=== PATIENT | male | born 1980 | race Two or more races ===

== ENCOUNTER 2021-01-16 07:07 | Inpatient (IN) | payer OTHER ==
[2021-01-16] MEDS ORDERED: NALOXONE 0.4 MG/ML 1 ML VIAL IVP STA ×2 (07:18→10:30)
[2021-01-16 07:45] LABS: Basophils # (A) 0.1 k/uL (0-0.2); Basophils % (A) 1 %; Eosinophils # (A) 0.1 k/uL (0-0.7); Eosinophils % (A) 0 %; HCT 47.4 % (39.0-53.0); HGB 15.9 gm/dL (13.0-17.5); Lymphocytes # (A) 1.2 k/uL (1.0-4.8); Lymphocytes % (A) 7 %; MCH 32.3 pg (25.0-35.0); MCHC 33.5 g/dL (31.0-37.0); MCV 96.3 fL (80.0-100.0); Mean Platelet Volume 7.8; Monocytes # (A) 0.9 k/uL (0-1.0); Monocytes % (A) 6 %; Neutrophils # (A) 14.4 k/uL (1.3-7.7); Neutrophils % (A) 86 %; Platelet Count 183 k/uL (150-450); RBC 4.93 m/uL (4.30-5.90); RDW 12.9 % (11.5-15.5); WBC 16.9 k/uL (3.8-10.6)
[2021-01-16 07:51] LABS: Albumin 3.8 g/dL (3.5-5.0); Calcium 8.4 mg/dL (8.4-10.2); Magnesium 1.9 mg/dL (1.6-2.3); Potassium 4.7 mmol/L (3.5-5.1); Total Bilirubin 0.6 mg/dL (0.2-1.3); Total Protein 6.6 g/dL (6.3-8.2)
--- NOTE | 2021-01-16 07:57 | XR ---
EXAMINATION TYPE: XR chest 2V DATE OF EXAM: 01/16/2021 COMPARISON: NONE HISTORY: Unresponsive, shortness of breath, possible drug overdose. TECHNIQUE: Frontal and lateral views of the chest are obtained. FINDINGS: The defibrillator pad overlies the right chest. Increased reticular opacities throughout t he left lung centrally. The cardiac silhouette size is upper limits of normal. Overlying EKG leads. No pleural effusion or pneumothorax seen bilaterally. The osseous structures are intact. IMPRESSION: Suspect diffuse left lung edema and/or less likely infiltrates. Progress study advised.
--- NOTE | 2021-01-16 08:07 | ED ---
General Adult HPI - General Chief complaint: Overdose Stated complaint: overdose Time Seen by Provider: 01/16/21 07:10 Source: patient, EMS, RN notes reviewed, old records reviewed Mode of arrival: EMS - History of Present Illness Initial comments: This is a 40-year-old male who presents emergency Department according to EMS he was found unresponsive by family and they gave him Narcan and the patient became awake and alert however he is again very drowsy and only responds to verbal or physical stimuli. Patient was given Narcan again he became awake and alert however patient denies any drug use. According to EMS his lungs sounded very wet and they were sure if he aspirated or was she having pulmonary edema. - Related Data Home Medications Medication Instructions Recorded Confirmed No Known Home Medications 01/16/21 01/16/21 Allergies Allergy/AdvReac Type Severity Reaction Status Date / Time No Known Allergies Allergy Verified 01/16/21 08:52 Review of Systems ROS Statement: Those systems with pertinent positive or pertinent negative responses have been documented in the HPI. ROS Other: All systems not noted in ROS Statement are negative. Past Medical History Past Medical History: Unable to Obtain History of Any Multi-Drug Resistant Organisms: Unobtainable Past Surgical History: Unable to Obtain Past Psychological History: Unable to Obtain Smoking Status: Unknown if ever smoked Past Alcohol Use History: Unable to Obtain Past Drug Use History: Unable to Obtain General Exam - General Exam Comments Initial Comments: GENERAL: Patient is well-developed and well-nourished. Patient is nontoxic and well- hydrated and is in mild distress. ENT: Neck is soft and supple. No significant lymphadenopathy is noted. Oropharynx is clear. Moist mucous membranes. Neck has full range of motion without eliciting any pain. There is no thyroid enlargement and no masses were felt. EYES: The sclera were anicteric and conjunctiva were pink and moist. Extraocular mo vements were intact and pupils were pinpoint. Eyelids were unremarkable. PULMONARY: Unlabored respirations. Good breath sounds bilaterally. No audible rales rhonchi or wheezing was noted. CARDIOVASCULAR: There is a regular rate and rhythm without any murmurs gallops or rubs. ABDOMEN: Soft and nontender with normal bowel sounds. SKIN: Skin is clear with no lesions or rashes and otherwise unremarkable. NEUROLOGIC: Patient is alert and oriented x3. Cranial nerves II through XII are grossly intact. Motor and sensory are also intact. Normal speech, volume and content. Symmetrical smile. MUSCULOSKELETAL: Normal extremities with adequate strength and full range of motion. LYMPHATICS: No significant lymphadenopathy is noted PSYCHIATRIC: Normal psychiatric evaluation. Course Vital Signs 01/16/21 01/16/21 01/16/21 07:11 07:20 07:30 Temperature 98.5 F Pulse Rate 118 H Respiratory 28 H 24 Rate Blood Pressure 120/90 O2 Sat by Pulse 98 Oximetry 01/16/21 07:49 Temperature Pulse Rate Respiratory 16 Rate Blood Pressure O2 Sat by Pulse Oximetry Medical Decision Making - Medical Decision Making EKG shows sinus tachycardia 113 bpm LA interval 130 QRS is under 100 QT interval is 318 QTC is 436. Patient's EKG shows no ST segment elevation or depression. Patient was given Narcan in the emergency department patient became alert and oriented. Patient again denies any drug use. X-ray shows left-sided pulmonary edema however I cannot be 100% sure there is no infiltrate or aspiration so started the patient on Rocephin and we'll continue antibiotics on the floor. I spoke with Dr. Nelson he came down and saw the patient and placed the patient on Narcan drip. Patient's head CT showed no acute abnormality. I wrote admitting orders. - Lab Data Result diagrams: 01/16/21 07:25 01/16/21 07:25 Lab Results 01/16/21 01/16/21 01/16/21 Range/Units 07:25 07:25 07:25 WBC 16.9 H (3.8-10.6) k/uL RBC 4.93 (4.30-5.90) m/uL Hgb 15.9 (13.0-17.5) gm/dL Hct 47.4 (39.0-53.0) % MCV 96.3 (80.0-100.0) fL MCH 32.3 (25.0-35.0) pg MCHC 33.5 (31.0-37.0) g/dL RDW 12.9 (11.5-15.5) % Plt Count 183 (150-450) k/uL MPV 7.8 Neutrophils % 86 % Lymphocytes % 7 % Monocytes % 6 % Eosinophils % 0 % Basophils % 1 % Neutrophils # 14.4 H (1.3-7.7) k/uL Lymphocytes # 1.2 (1.0-4.8) k/uL Monocytes # 0.9 (0-1.0) k/uL Eosinophils # 0.1 (0-0.7) k/uL Basophils # 0.1 (0-0.2) k/uL Sample Site ABG pH (7.35-7.45) ABG pCO2 (35-45) mmHg ABG pO2 (83-108) mmHg ABG HCO3 (21-25) mmol/L ABG Total CO2 (19-24) mmol/L ABG O2 Saturation (94-97) % ABG Base Excess mmol/L Eliseo Test FiO2 % Sodium 134 L (137-145) mmol/L Potassium 4.7 (3.5-5.1) mmol/L Chloride 104 (98-107) mmol/L Carbon Dioxide 22 (22-30) mmol/L Anion Gap 8 mmol/L BUN 23 H (9-20) mg/dL Creatinine 1.18 (0.66-1.25) mg/dL Est GFR (CKD-EPI)AfAm 88 (>60 ml/min/1.73 sqM) Est GFR (CKD-EPI)NonAf 76 (>60 ml/min/1.73 sqM) Glucose 161 H (74-99) mg/dL Calcium 8.4 (8.4-10.2) mg/dL Magnesium 1.9 (1.6-2.3) mg/dL Total Bilirubin 0.6 (0.2-1.3) mg/dL AST 146 H (17-59) U/L ALT 37 (4-49) U/L Alkaline Phosphatase 50 (38-126) U/L Troponin I 0.281 H* (0.000-0.034) ng/mL NT-Pro-B Natriuret Pep pg/mL Total Protein 6.6 (6.3-8.2) g/dL Albumin 3.8 (3.5-5.0) g/dL Urine Opiates Screen (NotDetected) Ur Oxycodone Screen (NotDetected) Urine Methadone Screen (NotDetected) Ur Propoxyphene Screen (NotDetected) Ur Barbiturates Screen (NotDetected) U Tricyclic Antidepress (NotDetected) Ur Phencyclidine Scrn (NotDetected) Ur Amphetamines Screen (NotDetected) U Methamphetamines Scrn (NotDetected) U Benzodiazepines Scrn (NotDetected) Urine Cocaine Screen (NotDetected) U Marijuana (THC) Screen (NotDetected) Coronavirus (PCR) (Not Detectd) 01/16/21 01/16/21 01/16/21 Range/Units 07:25 07:25 07:36 WBC (3.8-10.6) k/uL RBC (4.30-5.90) m/uL Hgb (13.0-17.5) gm/dL Hct (39.0-53.0) % MCV (80.0-100.0) fL MCH (25.0-35.0) pg MCHC (31.0-37.0) g/dL RDW (11.5-15.5) % Plt Count (150-450) k/uL MPV Neutrophils % % Lymphocytes % % Monocytes % % Eosinophils % % Basophils % % Neutrophils # (1.3-7.7) k/uL Lymphocytes # (1.0-4.8) k/uL Monocytes # (0-1.0) k/uL Eosinophils # (0-0.7) k/uL Basophils # (0-0.2) k/uL Sample Site ABG pH (7.35-7.45) ABG pCO2 (35-45) mmHg ABG pO2 (83-108) mmHg ABG HCO3 (21-25) mmol/L ABG Total CO2 (19-24) mmol/L ABG O2 Saturation (94-97) % ABG Base Excess mmol/L Eliseo Test FiO2 % Sodium (137-145) mmol/L Potassium (3.5-5.1) mmol/L Chloride (98-107) mmol/L Carbon Dioxide (22-30) mmol/L Anion Gap mmol/L BUN (9-20) mg/dL Creatinine (0.66-1.25) mg/dL Est GFR (CKD-EPI)AfAm (>60 ml/min/1.73 sqM) Est GFR (CKD-EPI)NonAf (>60 ml/min/1.73 sqM) Glucose (74-99) mg/dL Calcium (8.4-10.2) mg/dL Magnesium (1.6-2.3) mg/dL Total Bilirubin (0.2-1.3) mg/dL AST (17-59) U/L ALT (4-49) U/L Alkaline Phosphatase (38-126) U/L Troponin I (0.000-0.034) ng/mL NT-Pro-B Natriuret Pep 1250 pg/mL Total Protein (6.3-8.2) g/dL Albumin (3.5-5.0) g/dL Urine Opiates Screen Detected H (NotDetected) Ur Oxycodone Screen Not Detected (NotDetected) Urine Methadone Screen Not Detected (NotDetected) Ur Propoxyphene Screen Not Detected (NotDetected) Ur Barbiturates Screen Not Detected (NotDetected) U Tricyclic Antidepress Not Detected (NotDetected) Ur Phencyclidine Scrn Not Detected (NotDetected) Ur Amphetamines Screen Not Detected (NotDetected) U Methamphetamines Scrn Not Detected (NotDetected) U Benzodiazepines Scrn Not Detected (NotDetected) Urine Cocaine Screen Detected H (NotDetected) U Marijuana (THC) Screen Detected H (NotDetected) Coronavirus (PCR) Not Detected (Not Detectd) 01/16/21 Range/Units 09:25 WBC (3.8-10.6) k/uL RBC (4.30-5.90) m/uL Hgb (13.0-17.5) gm/dL Hct (39.0-53.0) % MCV (80.0-100.0) fL MCH (25.0-35.0) pg MCHC (31.0-37.0) g/dL RDW (11.5-15.5) % Plt Count (150-450) k/uL MPV Neutrophils % % Lymphocytes % % Monocytes % % Eosinophils % % Basophils % % Neutrophils # (1.3-7.7) k/uL Lymphocytes # (1.0-4.8) k/uL Monocytes # (0-1.0) k/uL Eosinophils # (0-0.7) k/uL Basophils # (0-0.2) k/uL Sample Site lbrac ABG pH 7.42 (7.35-7.45) ABG pCO2 40 (35-45) mmHg ABG pO2 41 L* (83-108) mmHg ABG HCO3 25 (21-25) mmol/L ABG Total CO2 27 H (19-24) mmol/L ABG O2 Saturation 80.7 L (94-97) % ABG Base Excess 0.9 mmol/L Eliseo Test Yes FiO2 21 % Sodium (137-145) mmol/L Potassium (3.5-5.1) mmol/L Chloride (98-107) mmol/L Carbon Dioxide (22-30) mmol/L Anion Gap mmol/L BUN (9-20) mg/dL Creatinine (0.66-1.25) mg/dL Est GFR (CKD-EPI)AfAm (>60 ml/min/1.73 sqM) Est GFR (CKD-EPI)NonAf (>60 ml/min/1.73 sqM) Glucose (74-99) mg/dL Calcium (8.4-10.2) mg/dL Magnesium (1.6-2.3) mg/dL Total Bilirubin (0.2-1.3) mg/dL AST (17-59) U/L ALT (4-49) U/L Alkaline Phosphatase (38-126) U/L Troponin I (0.000-0.034) ng/mL NT-Pro-B Natriuret Pep pg/mL Total Protein (6.3-8.2) g/dL Albumin (3.5-5.0) g/dL Urine Opiates Screen (NotDetected) Ur Oxycodone Screen (NotDetected) Urine Methadone Screen (NotDetected) Ur Propoxyphene Screen (NotDetected) Ur Barbiturates Screen (NotDetected) U Tricyclic Antidepress (NotDetected) Ur Phencyclidine Scrn (NotDetected) Ur Amphetamines Screen (NotDetected) U Methamphetamines Scrn (NotDetected) U Benzodiazepines Scrn (NotDetected) Urine Cocaine Screen (NotDetected) U Marijuana (THC) Screen (NotDetected) Coronavirus (PCR) (Not Detectd) Critical Care Time Critical Care Time: Yes Total Critical Care Time: 35 Disposition Clinical Impression: Heroin overdose, Cocaine abuse, Pulmonary edema, Elevated troponin Disposition: ADMITTED IP TO THIS [facility] Referrals: None,Stated [Primary Care Provider] - 1-2 days Time of Disposition: 10:18
[2021-01-16] MEDS ORDERED: cefTRIAXone IN SWFI 1,000 MG/10 ML SYRINGE IVP STA (08:19)
[2021-01-16 08:31] LABS: Amphetamine Screen,Urine Not Detected (NotDetected); Barbiturate Screen,Urine Not Detected (NotDetected); Benzodiazepines Screen,Urine Not Detected (NotDetected); Cocaine Screen,Urine Detected (NotDetected); Methadone Screen, Urine Not Detected (NotDetected); Opiate Screen,Urine Detected (NotDetected); Oxycodone Screen, Urine Not Detected (NotDetected); Phencyclidine Screen,Urine Not Detected (NotDetected); Tricyclic Antidepressant,Urine Not Detected (NotDetected); Urn Cannabinoid Scrn Detected (NotDetected)
[2021-01-16 09:29] LABS: ABG Base Excess 0.9 mmol/L; ABG HCO3 25 mmol/L (21-25); ABG Oxygen Saturation 80.7 % (94-97); ABG PCO2 40 mmHg (35-45); ABG PH 7.42 (7.35-7.45); ABG TCO2 27 mmol/L (19-24); Allen Test Performed? Yes
--- NOTE | 2021-01-16 09:30 | CT ---
EXAMINATION TYPE: CT brain wo con DATE OF EXAM: 01/16/2021 COMPARISON: None. HISTORY: altered mental status CT DLP: 1099.4 mGycm. Automated Exposure Control for Dose Reduction was Utilized. TECHNIQUE: CT scan of the head is performed without contrast. FINDINGS: There is no acute intracranial hemorrhage or midline shift identified. Mild bilateral fro ntal lobe atrophy. No hydrocephalus. Alexander-white matter differentiation maintained. Mild mucosal thick ening involving the visualized portion of the ethmoid sinuses. Visualized portion of the globes are u nremarkable. IMPRESSION: No acute intracranial hemorrhage or midline shift is seen.
[2021-01-16 09:39] LABS: ABG PO2 41 mmHg (83-108)
[2021-01-16] MEDS ORDERED: SODIUM CHLORIDE 0.9% 1,000 ML IV ONE ×2 (10:18→11:00)
[2021-01-16] MEDS ORDERED: SODIUM CHLORIDE 0.9% 2,000 ML IV ONE (10:41)
--- NOTE | 2021-01-16 11:09 | P.HPIM ---
History of Present Illness Patient [id number] male was brought into ER with unresponsive. Patient was given Narcan with the some response. Patient received the Marcaine 3 times with the significant response patient urine drug screen was positive for cocaine and opiates. Patient still has altered mental status CT of the head did not show any significant abnormality patient had a chest x-ray which showed some infiltrate in the left lungs because of which patient was started the on antibiotics for possible aspiration. Patient was unable to provide much history patient is arousable and patient does answer. Family came in later on when questioned patient was a with some friends today and the there don't know anything much more than that. REVIEW OF SYSTEMS: Unable to obtain PHYSICAL EXAMINATION: GENERAL: Retired arousable not in any acute distress. Well developed, well nourished. Observe for agitation and cramps. HEENT: Pupils are round and equally reacting to light. EOMI. No scleral icterus. No conjunctival pallor. Normocephalic, atraumatic. No pharyngeal erythema. No thyromegaly. CARDIOVASCULAR: S1 and S2 present. No murmurs, rubs, or gallops. PULMONARY: Chest is clear to auscultation, no wheezing or crackles. ABDOMEN: Soft, nontender, nondistended, normoactive bowel sounds. No palpable organomegaly. MUSCULOSKELETAL: No joint swelling or deformity. EXTREMITIES: No cyanosis, clubbing, or pedal edema. NEUROLOGICAL: Gross neurological examination did not reveal any focal deficits. SKIN: No rashes. Assessment and plan -Acute hypoxic respiratory failure patient's ABG showed a pCO2 of 41 patient is requiring more than 10 L of oxygen. This is secondary to opiate overdose. Patient received Narcan 3 times patient is bit more awake now probably to protect the airway now. Patient may end up needing intubation as of now we'll try and avoid intubation. If needed patient will be started on Narcan drip -Significant muscle cramps: Secondary to dehydration from cocaine use patient will be given IV normal saline boluses after which patient was started on normal saline at 1 25 mL per hour. -Acute renal failure secondary to intravascular depletion [place]-sinus tachycardia secondary to dehydration patient will be started on IV fluids as mentioned above -Multiple drug use urine drug screen is positive for opiates cocaine and marijuana. Mildly elevated troponin secondary to hypoxemia as well as probably cocaine use Will repeat troponin again recheck the EKG as well as -Possible aspiration for which patient is on antibiotics for which we'll continue DVT prophylaxis: Lovenox Past Medical History Past Medical History: Unable to Obtain History of Any Multi-Drug Resistant Organisms: Unobtainable Past Surgical History: Unable to Obtain Past Psychological History: Unable to Obtain Smoking Status: Unknown if ever smoked Past Alcohol Use History: Unable to Obtain Past Drug Use History: Unable to Obtain Medications and Allergies Home Medications Medication Instructions Recorded Confirmed Type No Known Home Medications 01/16/21 01/16/21 History Allergies Allergy/AdvReac Type Severity Reaction Status Date / Time No Known Allergies Allergy Verified 01/16/21 08:52 Physical Exam Vitals: Vital Signs Temp Pulse Resp BP Pulse Ox 01/16/21 10:39 112 H 26 H 117/67 85 L 01/16/21 07:49 16 01/16/21 07:30 98.5 F 01/16/21 07:20 24 01/16/21 07:11 118 H 28 H 120/90 98 Intake and Output 01/15/21 01/16/21 01/16/21 22:59 06:59 14:59 Other: Weight 77.519 kg Results CBC & Chem 7: 01/16/21 07:25 01/16/21 07:25 Labs: Abnormal Lab Results - Last 24 Hours (Table) 01/16/21 01/16/21 01/16/21 Range/Units 07:25 07:25 07:25 WBC 16.9 H (3.8-10.6) k/uL Neutrophils # 14.4 H (1.3-7.7) k/uL ABG pO2 (83-108) mmHg ABG Total CO2 (19-24) mmol/L ABG O2 Saturation (94-97) % Sodium 134 L (137-145) mmol/L BUN 23 H (9-20) mg/dL Glucose 161 H (74-99) mg/dL AST 146 H (17-59) U/L Troponin I 0.281 H* (0.000-0.034) ng/mL Urine Opiates Screen (NotDetected) Urine Cocaine Screen (NotDetected) U Marijuana (THC) Screen (NotDetected) 01/16/21 01/16/21 Range/Units 07:36 09:25 WBC (3.8-10.6) k/uL Neutrophils # (1.3-7.7) k/uL ABG pO2 41 L* (83-108) mmHg ABG Total CO2 27 H (19-24) mmol/L ABG O2 Saturation 80.7 L (94-97) % Sodium (137-145) mmol/L BUN (9-20) mg/dL Glucose (74-99) mg/dL AST (17-59) U/L Troponin I (0.000-0.034) ng/mL Urine Opiates Screen Detected H (NotDetected) Urine Cocaine Screen Detected H (NotDetected) U Marijuana (THC) Screen Detected H (NotDetected)
[2021-01-16] MEDS: NALOXONE (MDV) 2 MG in SODIUM CHLORIDE 0.9% 250 ML IV SCH ×3 (11:19→22:34)
--- NOTE | 2021-01-16 12:00 | XR ---
EXAMINATION TYPE: XR chest 1V DATE OF EXAM: 01/16/2021 COMPARISON: Chest x-ray 01/16/2021 and earlier time HISTORY: Shortness of breath TECHNIQUE: Single frontal view of the chest is obtained. FINDINGS: There is overlying defibrillator pads, artifacts. Airspace disease is again noted within th e left lung, question some patchy density in the right lower lung. Cardiac mediastinal silhouette delvin ws a similar appearance. No evident pneumothorax or pleural effusion. Bones are stable. IMPRESSION: Correlate for edema, pneumonia not excluded.
[2021-01-16] MEDS: PANTOPRAZOLE 40 MG/10 ML VIAL IVP SCH (13:00)
[2021-01-16 13:07] LABS: ABG Base Excess -1.7 mmol/L; ABG HCO3 23 mmol/L (21-25); ABG Oxygen Saturation 94.2 % (94-97); ABG PCO2 38 mmHg (35-45); ABG PH 7.39 (7.35-7.45); ABG PO2 66 mmHg (83-108); ABG TCO2 24 mmol/L (19-24); Allen Test Performed? Yes
--- NOTE | 2021-01-16 13:09 | P.CNPUL ---
History of Present Illness Consult date: 01/16/21 Requesting physician: Amarjit Nelson Reason for consult: hypoxemia, abnormal CXR/CT Chief complaint: Altered mental status History of present illness: This is a 40-year-old male patient was brought in by EMS earlier this morning after being found unresponsive by family members. There is concern regarding drug overdose including cocaine, heroin, marijuana. EMS did provide Narcan and the patient became more awake and alert briefly became more obtunded shortly thereafter. While awake the patient denied any drug use. CY scan of the brain revealed no acute intracranial process. He has very loose congested cough and possible aspiration. X-ray does reveal bilateral airspace disease worse on the left and some patchy density in the right lower lobe. No pneumothorax. White count 16.9. Hemoglobin 15.9. Sodium 134. Potassium 4.7. Creatinine 1.18. Glucose 161. Lactic acid 3.3. Troponin 0.28, 0.55. AST 146 ALT 37. Drug screen positive for opiates, cocaine, marijuana. Coronavirus by PCR not detected. Arterial blood gases on room air revealed a PaO2 of 41, pCO2 40, pH 7.42. He is seen in the emergency room. He is arousable. Pulling at his IVs and oxygen. He is currently on 10 L high flow nasal cannula to maintain O2 saturations in the 90s. He remains tachypneic. Tachycardic. Blood pressure stable. He's been given ceftriaxone. Currently on a Narcan drip at 0.6 mg per hour. 0.9 normal saline at 75 ML's per hour. Review of Systems ROS unobtainable: due to mental status Past Medical History Past Medical History: Unable to Obtain History of Any Multi-Drug Resistant Organisms: Unobtainable Past Surgical History: Unable to Obtain Past Psychological History: Unable to Obtain Smoking Status: Unknown if ever smoked Past Alcohol Use History: Unable to Obtain Past Drug Use History: Unable to Obtain Medications and Allergies Home Medications Medication Instructions Recorded Confirmed Type No Known Home Medications 01/16/21 01/16/21 History Allergies Allergy/AdvReac Type Severity Reaction Status Date / Time No Known Allergies Allergy Verified 01/16/21 08:52 Physical Exam Vitals: Vital Signs Temp Pulse Resp BP Pulse Ox 01/16/21 11:19 30 H 01/16/21 10:50 30 H 01/16/21 10:39 112 H 26 H 117/67 85 L 01/16/21 07:49 16 01/16/21 07:30 98.5 F 01/16/21 07:20 24 01/16/21 07:11 118 H 28 H 120/90 98 Intake and Output 01/15/21 01/16/21 01/16/21 22:59 06:59 14:59 Other: Weight 77.519 kg GENERAL EXAM: Arousable but drifts off, 40-year-old male patient, on 10 L high flow nasal cannula, restless, pulling IVs and oxygen. HEAD: Normocephalic. EYES: Sluggish reaction of pupils, equal size. NOSE: Clear with pink turbinates. THROAT: No erythema or exudates. NECK: No masses, no JVD. CHEST: No chest wall deformity. LUNGS: Equal air entry with bilateral scattered rhonchi CVS: S1 and S2 normal with no audible murmur, regular rhythm. ABDOMEN: No hepatosplenomegaly, normal bowel sounds, no guarding or rigidity. SPINE: No scoliosis or deformity SKIN: No rashes CENTRAL NERVOUS SYSTEM: Arousable but drifts off easily, brief but non focal deficits, tone is normal in all 4 extremities. EXTREMITIES: There is no peripheral edema. No clubbing, no cyanosis. Peripheral pulses are intact. Results - Laboratory Findings CBC and BMP: 01/16/21 07:25 01/16/21 07:25 ABG ABG pH 7.42 (7.35-7.45) 01/16/21 09:25 ABG pCO2 40 mmHg (35-45) 01/16/21 09:25 ABG pO2 41 mmHg (83-108) L* 01/16/21 09:25 ABG O2 Saturation 80.7 % (94-97) L 01/16/21 09:25 Abnormal lab findings: Abnormal Labs 01/16/21 01/16/21 01/16/21 07:25 07:25 07:25 WBC 16.9 H Neutrophils # 14.4 H ABG pO2 ABG Total CO2 ABG O2 Saturation Sodium 134 L BUN 23 H Glucose 161 H Plasma Lactic Acid Aris AST 146 H Troponin I 0.281 H* Urine Opiates Screen Urine Cocaine Screen U Marijuana (THC) Screen 11/16/21 11/16/21 11/16/21 07:36 09:25 10:50 WBC Neutrophils # ABG pO2 41 L* ABG Total CO2 27 H ABG O2 Saturation 80.7 L Sodium BUN Glucose Plasma Lactic Acid Aris 3.3 H* AST Troponin I Urine Opiates Screen Detected H Urine Cocaine Screen Detected H U Marijuana (THC) Screen Detected H 01/16/21 10:50 WBC Neutrophils # ABG pO2 ABG Total CO2 ABG O2 Saturation Sodium BUN Glucose Plasma Lactic Acid Aris AST Troponin I 0.559 H* Urine Opiates Screen Urine Cocaine Screen U Marijuana (THC) Screen - Diagnostic Findings Chest x-ray: image reviewed Assessment and Plan Assessment: 1 Altered mental status secondary to drug overdose including cocaine, marijuana and possible heroin 2 Acute hypoxic respiratory failure secondary to suspected aspiration versus fluid volume overload 3 Leukocytosis secondary to above 4 Troponin leak Plan: The patient was seen and evaluated by Dr. Fabian Chest x-ray and labs reviewed Follow-up ABGs Currently on 10 L high flow nasal cannula Continue to monitor closely to assure the patient able to protect his airway Discontinue ceftriaxone, add Zosyn Continue fluid resuscitation Lovenox for DVT prophylaxis Transfer to the ICU once a bed is available We will continue to follow and make further recommendations based on his clinical status I, the cosigning physician, performed a history & physical examination of the patient. Lungs sounds with crackles in the bilateral bases, few scattered rhonchi. Maintaining good O2 saturations in the 90s on 10 L high flow nasal cannula. I discussed the assessment and plan of care with my nurse practi Shanti martinez. I attest to the above consultation as dictated by her. Time with Patient: Greater than 30
[2021-01-16 13:29] LABS: Glucose,Whole Blood 116 mg/dL (75-99)
[2021-01-16] MEDS ORDERED: IPRATROPIUM-ALBUTEROL 3 ML NEB INHALATION PRN (15:13)
[2021-01-16] MEDS ORDERED: NALOXONE 0.4 MG/ML 1 ML VIAL IV PRN (18:21)
[2021-01-16] MEDS: PIPERACILLIN-TAZOBACTAM 3.375 GM in SODIUM CHLORIDE 0.9% 100 ML IVPB SCH ×2 (18:30→23:00)
[2021-01-16] MEDS: SODIUM CHLORIDE 0.9% 1,000 ML IV SCH (18:31)
[2021-01-16] MEDS: IPRATROPIUM-ALBUTEROL 3 ML NEB INHALATION SCH (20:16)
[2021-01-17] MEDS: NALOXONE (MDV) 2 MG in SODIUM CHLORIDE 0.9% 250 ML IV SCH ×3 (04:23→10:16)
[2021-01-17 05:15] LABS: HCT 43.3 % (39.0-53.0); HGB 14.7 gm/dL (13.0-17.5); MCH 32.3 pg (25.0-35.0); Mean Platelet Volume 7.4; Platelet Count 184 k/uL (150-450); RBC 4.56 m/uL (4.30-5.90); RDW 12.8 % (11.5-15.5); WBC 18.2 k/uL (3.8-10.6)
[2021-01-17 05:33] LABS: African American GFR (CKD) >90 (>60 ml/min/1.73 sqM); Anion Gap 4 mmol/L; Blood Urea Nitrogen 20 mg/dL (9-20); Calcium 8.4 mg/dL (8.4-10.2); Carbon Dioxide 25 mmol/L (22-30); Chloride 107 mmol/L (98-107); Glucose 117 mg/dL (74-99); Magnesium 1.8 mg/dL (1.6-2.3); Non-African American GFR(CKD) >90 (>60 ml/min/1.73 sqM); Sodium 136 mmol/L (137-145)
[2021-01-17 05:39] LABS: Band Neutrophils % 28 %; Lymphocytes # (M) 2.18 k/uL (1.0-4.8); Monocytes # (M) 1.27 k/uL (0-1.0); Neutrophils % (M) 53 %; Nucleated Red Blood Cells 0 /100 WBC (0-0); Total Cells Counted 200
[2021-01-17 05:40] LABS: Toxic Granulation Present; Toxic Vacuolation Present
[2021-01-17] MEDS ORDERED: Magnesium Replacement Protocol 1 EACH MISC MISCELLANE PRN (08:40)
[2021-01-17] MEDS: PANTOPRAZOLE 40 MG/10 ML VIAL IVP SCH (09:05)
[2021-01-17] MEDS: ENOXAPARIN 40 MG/0.4 ML SYRINGE SQ SCH (09:05)
[2021-01-17] MEDS: PIPERACILLIN-TAZOBACTAM 3.375 GM in SODIUM CHLORIDE 0.9% 100 ML IVPB SCH ×2 (09:06→21:49)
[2021-01-17] MEDS: IPRATROPIUM-ALBUTEROL 3 ML NEB INHALATION SCH ×3 (09:12→21:15)
--- NOTE | 2021-01-17 09:22 | XR ---
EXAMINATION TYPE: XR chest 1V portable DATE OF EXAM: 01/17/2021 Comparison: 01/16/2021 Clinical History: 40-year-old male sob Findings: Heart upper limits of normal in size. Patchy opacity throughout the left lung show slight improvement from prior. No pleural effusion. Impression: Patchy opacity throughout the left lung is improving compared to prior exam. Mild residual density re kennedy.
--- NOTE | 2021-01-17 09:31 | XR ---
Right hip HISTORY: Pain 2 views of the right hip Bone mineralization, joint spaces and alignment are maintained. Question of spinal curvature. IMPRESSION: Normal right hip. Consider dedicated lumbar spine exam as indicated.
[2021-01-17] MEDS: NICOTINE 14MG/24HR PATCH TRANSDERM SCH (09:59)
[2021-01-17] MEDS: PANTOPRAZOLE 40 MG TABLET PO SCH (09:59)
[2021-01-17] MEDS: MAGNESIUM SULFATE-D5W PMX 1 GM in DEXTROSE/WATER 1 100ML.BAG IVPB SCH ×2 (10:01→10:21)
[2021-01-17] MEDS: methylPREDNISolone 4 MG TAB TAPER PO SCH (10:40)
[2021-01-17] MEDS: AMOXIC-POT CLAV 875-125MG 1 EACH TAB PO SCH ×2 (10:40→21:04)
--- NOTE | 2021-01-17 13:31 | P.PN ---
Subjective Progress Note Date: 01/17/21 Principal diagnosis: Altered mental status secondary to drug overdose This is a 40-year-old male patient was brought in by EMS earlier this morning after being found unresponsive by family members. There is concern regarding drug overdose including cocaine, heroin, marijuana. EMS did provide Narcan and the patient became more awake and alert briefly became more obtunded shortly thereafter. While awake the patient denied any drug use. CY scan of the brain revealed no acute intracranial process. He has very loose congested cough and possible aspiration. X-ray does reveal bilateral airspace disease worse on the left and some patchy density in the right lower lobe. No pneumothorax. White count 16.9. Hemoglobin 15.9. Sodium 134. Potassium 4.7. Creatinine 1.18. Glucose 161. Lactic acid 3.3. Troponin 0.28, 0.55. AST 146 ALT 37. Drug screen positive for opiates, cocaine, marijuana. Coronavirus by PCR not detected. Arterial blood gases on room air revealed a PaO2 of 41, pCO2 40, pH 7.42. He is seen in the emergency room. He is arousable. Pulling at his IVs and oxygen. He is currently on 10 L high flow nasal cannula to maintain O2 saturations in the 90s. He remains tachypneic. Tachycardic. Blood pressure stable. He's been given ceftriaxone. Currently on a Narcan drip at 0.6 mg per hour. 0.9 normal saline at 75 ML's per hour. The patient is seen today 01/17/2021 in follow-up in the intensive care unit. He is much more awake and alert today. Oriented 3. Maintaining O2 saturation is in the 90s on 5 L high flow nasal cannula. His been afebrile. Hemodynamically stable. His x-ray shows improving patchy opacity within the left lung. Blood cultures revealed no growth. White count 18.2. Hemoglobin 14.7. Sodium 136. Potassium 4.0. Creatinine 0.87. Troponin 0.411. Echocardiogram is pending. X-ray of the right hip secondary to complaints of pain revealed no acute fractures. He is continued on DuoNeb inhalations, Zosyn. NicoDerm patch in place. Lovenox for DVT prophylaxis. Objective - Vital Signs Vital signs: Vital Signs Temp 98 F 01/17/21 09:00 Pulse 94 01/17/21 12:00 Resp 23 01/17/21 12:00 BP 112/74 01/17/21 12:00 Pulse Ox 93 L 01/17/21 12:00 Intake & Output 01/16/21 01/17/21 01/17/21 18:59 06:59 18:59 Intake Total 425 575 500 Output Total 0 1050 625 Balance 425 -475 -125 Weight 77.519 kg 77.1 kg Intake: IV 425 250 Sodium Chloride 0.9% 1, 425 000 ml @ 125 mls/hr IV . Q8H [facility] Rx#:[id number] Sodium Chloride 0.9% 1, 250 000 ml @ 50 mls/hr IV . Q20H [facility] Rx#:[id number] Intake, IV Titration 575 50 Amount Piperacillin-Tazobactam 3 100 .375 gm In Sodium Chloride 0.9% 100 ml @ 25 mls/hr IVPB Q8HR [facility] Rx# :[id number] Sodium Chloride 0.9% 1, 475 50 000 ml @ 50 mls/hr IV . Q20H [facility] Rx#:[id number] Oral 200 Output: Urine 0 1050 625 Other: Voiding Method Urinal Toilet # Voids 0 1 - Exam GENERAL EXAM: Alert, hard, oriented 3, 40-year-old gentleman, on 5 L high flow nasal cannula, comfortable in no apparent distress. HEAD: Normocephalic. EYES: Normal reaction of pupils, equal size. NOSE: Clear with pink turbinates. THROAT: No erythema or exudates. NECK: No masses, no JVD. CHEST: No chest wall deformity. LUNGS: Equal air entry with crackles in the left lung base. CVS: S1 and S2 normal with no audible murmur, regular rhythm. ABDOMEN: No hepatosplenomegaly, normal bowel sounds, no guarding or rigidity. SPINE: No scoliosis or deformity SKIN: No rashes CENTRAL NERVOUS SYSTEM: No focal deficits, tone is normal in all 4 extremities. EXTREMITIES: There is no peripheral edema. No clubbing, no cyanosis. Periphe ral pulses are intact. - Labs CBC & Chem 7: 01/17/21 04:49 01/17/21 04:49 Labs: Abnormal Lab Results - Last 24 Hours (Table) 01/16/21 01/16/21 01/17/21 Range/Units 13:28 14:12 04:49 WBC 18.2 H (3.8-10.6) k/uL Neutrophils # (Manual) 14.70 H (1.3-7.7) k/uL Monocytes # (Manual) 1.27 H (0-1.0) k/uL Sodium (137-145) mmol/L Glucose (74-99) mg/dL POC Glucose (mg/dL) 116 H (75-99) mg/dL Plasma Lactic Acid Aris 2.1 H* (0.7-2.0) mmol/L Troponin I (0.000-0.034) ng/mL 01/17/21 01/17/21 Range/Units 04:49 04:49 WBC (3.8-10.6) k/uL Neutrophils # (Manual) (1.3-7.7) k/uL Monocytes # (Manual) (0-1.0) k/uL Sodium 136 L (137-145) mmol/L Glucose 117 H (74-99) mg/dL POC Glucose (mg/dL) (75-99) mg/dL Plasma Lactic Acid Aris (0.7-2.0) mmol/L Troponin I 0.411 H* (0.000-0.034) ng/mL Microbiology - Last 24 Hours (Table) 01/16/21 10:50 Blood Culture - Preliminary Blood No Growth after 24 hours 01/16/21 10:50 Blood Culture - Preliminary Blood No Growth after 24 hours Assessment and Plan Assessment: 1 Altered mental status secondary to drug overdose including cocaine, marijuana and possible heroin, recovered 2 Acute hypoxic respiratory failure secondary to suspected aspiration versus fluid volume overload improved and down to 5 L high flow nasal cannula 3 Leukocytosis secondary to above 4 Troponin leak, echocardiogram pending Plan: The patient was seen and evaluated by Dr. Fabian Chest x-ray and labs reviewed Currently on 5 L high flow nasal cannula Titrate down the FiO2 as tolerated Discontinue Zosyn, add Augmentin Initiate Medrol Dosepak Lovenox for DVT prophylaxis NicoDerm patch added Transfer to the regular medical floor We will continue to follow I, the cosigning physician, performed a history & physical examination of the patient. Lungs sounds with crackles in the left lung base. Maintaining good O2 saturations in the 90s on 5 L high flow nasal cannula. I discussed the assessment and plan of care with my nurse practitioner, Shanti Brooks. I attest to the above note as dictated by her.
--- NOTE | 2021-01-17 14:10 | P.PN ---
Subjective Progress Note Date: 01/17/21 Patient [id number] male was brought into ER with unresponsive. Patient was given Narcan with the some response. Patient received the Marcaine 3 times with the significant response patient urine drug screen was positive for cocaine and opiates. Patient still has altered mental status CT of the head did not show any significant abnormality patient had a chest x-ray which showed some infiltrate in the left lungs because of which patient was started the on antibiotics for possible aspiration. Patient was unable to provide much history patient is arousable and patient does answer. Family came in later on when questioned patient was a with some friends today and the there don't know anything much more than that. 01/17/2021 Patient is evaluated today in intensive care unit, he has been off the Narcan drip for almost 24 hours. He is awake alert and oriented 3. Patient states that he feels very fatigued. He denies any headache, nausea, vomiting, diarrhea. Patient states that he is tolerating diet fine. Also has some complaints of a sore bottom, hip was x-rayed today with no acute fractures evident. He continues on 2 L nasal cannula, wean down from 5 L this morning. Patient is on a steroid taper and oral Augmentin. White blood cell count today is 18.2, sodium 136, magnesium 1.8, Troponin is 0.411. Echocardiogram is pending at this time, we will evaluate patient overnight and possible discharge tomorrow. Blood pressure stable 112/74. Patient can make transferred out of [facility] intensive care unit to the medical floor. He reports that he does drink frequently, however not daily. He reports smoking cigarettes and marijuana daily. Patient denies any significant past medical history. ROS Constitutional: Denied any fever, reports fatigue Cardio vascular: denied any chest pain, palpitations Gastrointestinal denied any nausea vomiting, denies abdominal pain Pulmonary: Denied any shortness of breath cough Neurologic denied any new focal deficits All inpatient medications were reviewed and appropriate changes in these medications as dictated in the interval history and assessment and plan. PHYSICAL EXAMINATION: GENERAL: Arousable not in any acute distress. AO x3 when awake. Well developed, well nourished. Observe for agitation and cramps. HEENT: Pupils are round and equally reacting to light. EOMI. No scleral icterus. No conjunctival pallor. Normocephalic, atraumatic. No pharyngeal erythema. No thyromegaly. CARDIOVASCULAR: S1 and S2 present. No murmurs, rubs, or gallops. PULMONARY: There is coarse rhonchi in all lung tatum, more predemoninant in the right. ABDOMEN: Soft, nontender, nondistended, normoactive bowel sounds. No palpable organomegaly. MUSCULOSKELETAL: No joint swelling or deformity. EXTREMITIES: No cyanosis, clubbing, or pedal edema. NEUROLOGICAL: Gross neurological examination did not reveal any focal deficits. SKIN: No rashes. Assessment and plan Assessment -Acute hypoxic respiratory failure secondary to opiate overdose with possible aspiration pneumonia. -Significant muscle cramps: Secondary to dehydration from cocaine use -Acute renal failure secondary to intravascular depletion, resolved -Sinus tachycardia secondary to dehydration, improving -Multiple drug use urine drug screen is positive for opiates cocaine and marijuana. -Mildly elevated troponin secondary to hypoxemia as well as probably cocaine use -Leukocytosis probably reactive and related to possible aspiration pneumonia DVT prophylaxis: Lovenox FULL CODE Plan Continue PO antibiotics and oral steroid taper Continue with IV fluids Continue to monitor neuro status Repeat labs in the morning Echocardiogram is pending, may need to consult cardiology depending on report Continue to wean oxygen as tolerated Objective - Vital Signs Vital signs: Vital Signs Temp 98.2 F 01/17/21 04:00 Pulse 89 01/17/21 08:00 Resp 23 01/17/21 08:00 BP 106/60 01/17/21 08:00 Pulse Ox 96 01/17/21 08:00 Intake & Output 01/16/21 01/17/21 01/17/21 18:59 06:59 18:59 Intake Total 425 575 50 Output Total 0 1050 0 Balance 425 -475 50 Weight 77.519 kg 77.1 kg Intake: IV 425 Sodium Chloride 0.9% 1, 425 000 ml @ 125 mls/hr IV . Q8H [facility] Rx#:[id number] Intake, IV Titration 575 50 Amount Piperacillin-Tazobactam 3 100 .375 gm In Sodium Chloride 0.9% 100 ml @ 25 mls/hr IVPB Q8HR [facility] Rx# :[id number] Sodium Chloride 0.9% 1, 475 50 000 ml @ 50 mls/hr IV . Q20H [facility] Rx#:[id number] Output: Urine 0 1050 0 Other: Voiding Method Urinal # Voids 0 - Labs CBC & Chem 7: 01/17/21 04:49 01/17/21 04:49 Labs: Abnormal Lab Results - Last 24 Hours (Table) 01/16/21 01/16/21 01/16/21 Range/Units 09:25 10:50 10:50 WBC (3.8-10.6) k/uL Neutrophils # (Manual) (1.3-7.7) k/uL Monocytes # (Manual) (0-1.0) k/uL ABG pO2 41 L* (83-108) mmHg ABG Total CO2 27 H (19-24) mmol/L ABG O2 Saturation 80.7 L (94-97) % Sodium (137-145) mmol/L Glucose (74-99) mg/dL POC Glucose (mg/dL) (75-99) mg/dL Plasma Lactic Acid Aris 3.3 H* (0.7-2.0) mmol/L Troponin I 0.559 H* (0.000-0.034) ng/mL 01/16/21 01/16/21 01/16/21 Range/Units 11:16 13:28 14:12 WBC (3.8-10.6) k/uL Neutrophils # (Manual) (1.3-7.7) k/uL Monocytes # (Manual) (0-1.0) k/uL ABG pO2 66 L (83-108) mmHg ABG Total CO2 (19-24) mmol/L ABG O2 Saturation (94-97) % Sodium (137-145) mmol/L Glucose (74-99) mg/dL POC Glucose (mg/dL) 116 H (75-99) mg/dL Plasma Lactic Acid Aris 2.1 H* (0.7-2.0) mmol/L Troponin I (0.000-0.034) ng/mL 01/17/21 01/17/21 Range/Units 04:49 04:49 WBC 18.2 H (3.8-10.6) k/uL Neutrophils # (Manual) 14.70 H (1.3-7.7) k/uL Monocytes # (Manual) 1.27 H (0-1.0) k/uL ABG pO2 (83-108) mmHg ABG Total CO2 (19-24) mmol/L ABG O2 Saturation (94-97) % Sodium 136 L (137-145) mmol/L Glucose 117 H (74-99) mg/dL POC Glucose (mg/dL) (75-99) mg/dL Plasma Lactic Acid Aris (0.7-2.0) mmol/L Troponin I (0.000-0.034) ng/mL Assessment and Plan Time with Patient: Greater than 30
--- NOTE | 2021-01-17 14:30 | ECHOF ---
Referral Reason:Lv function MEASUREMENTS -------- HEIGHT: 170.2 cm WEIGHT: 76.7 kg BP: 112/76 RVIDd: 3.2 cm (< 3.3) IVSd: 0.9 cm (0.6 - 1.1) LVIDd: 5.0 cm (3.9 - 5.3) LVPWd: 0.9 cm (0.6 - 1.1) IVSs: 1.3 cm LVIDs: 4.1 cm LVPWs: 1.5 cm LAESV Index (A-L): 26.29 ml/m Ao Diam: 3.9 cm (2.0 - 3.7) AV Cusp: 2.1 cm (1.5 - 2.6) MV EXCURSION: 18.450 mm (> 18.000) MV EF SLOPE: 72 mm/s (70 - 150) EPSS: 1.0 cm MV E Dwight: 0.45 m/s MV DecT: 254 ms MV A Dwight: 0.57 m/s MV E/A Ratio: 0.78 RAP: 5.00 mmHg RVSP: 30.53 mmHg FINDINGS -------- Sinus rhythm. This was a technically adequate study. The left ventricular size is normal. Left ventricular wall thickness is normal. There is moderate global hypokinesis of LV . Overall left ventricular systolic function is moderately impaired with, an EF between 35 - 40 %. The right ventricle is normal in size. Normal LA size by volume 22+/-6 ml/m2. The right atrial size is normal. Interatrial and interventricular septum intact. The aortic valve is trileaflet and appears structurally normal. There is no evidence of aortic regu rgitation. There is no evidence of aortic stenosis. [id number] mitral regurgitation is present. Mild tricuspid regurgitation present. There is no evidence of pulmonary hypertension. The right v entricular systolic pressure, as measured by Doppler, is 30.53mmHg. There is no pulmonic regurgitation present. The aortic root size is normal. IVC Not well visulized. There is no pericardial effusion. CONCLUSIONS -------- 1. The left ventricular size is normal. 2. Left ventricular wall thickness is normal. 3. There is moderate global hypokinesis of LV . 4. Overall left ventricular systolic function is moderately impaired with, an EF between 35 - 40 %. 5. [id number] mitral regurgitation is present. 6. Mild tricuspid regurgitation present. LAW TUTOR: Liset Olivier RDCS
--- NOTE | 2021-01-17 15:31 | CONS ---
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 Subsequently, he is more alert, oriented. He has not had any drowsiness issues. On questioning, he snorted cocaine at about 9:00 pm the night before he arrived. However, he was also hypoxic for a while and his troponins have gone up. He is resting comfortably at the time of my evaluation, has no chest pain, shortness of breath, or palpitations. PAST MEDICAL HISTORY: Unremarkable for any hypertension, diabetes, myocardial infarction or CVA. Patient has used drugs before, but indicates to me that it is very infrequent and the one he used yesterday was 9:00 pm before his arrival to the hospital and he was snorting cocaine. The drug screen suggests that these drugs were in his system. There is no evidence of any documented chronic illnesses and he does not take any prescription medications. PHYSICAL EXAMINATION: On examination, blood pressure is 118/70, pulse rate is 80 per minute. HEENT unremarkable. Fundus was not examined by me. NECK is supple. There is no JVD. I do not hear a carotid bruit. HEART exam reveals S1, S2 without significant murmur. LUNGS: Fine rales on both bases. ABDOMEN is soft, nontender. Lower EXTREMITIES reveal diminished pulses. CENTRAL NERVOUS SYSTEM is grossly within normal limits without any focal motor deficits. LABORATORY DATA: Suggests that his white count is elevated. Renal function is normal. Troponin is elevated was 0.5 at 10:50 am yesterday. Chest x-ray suggests some edema of the left lung and possible pneumonia also in the right lower lung tatum. IMPRESSION: 1. Troponin elevation suggests myocardial injury, probably secondary to hypoxia. 2. Acute cocaine overdose with obtundation requiring Narcan. 3. Rule out any aspiration pneumonia. RECOMMENDATIONS: No specific intervention from a cardiac standpoint. I am recommending that we obtain an additional lab work to check another troponin level and echocardiogram to assess LV function. The patient was counseled to quit cocaine use since it is injurious both to the heart and lung. No specific intervention. We will do echocardiogram, check additional troponin and other care as per paint striping machine operator, Dr. Fabian. MMODL / IJN: [id number] /
[2021-01-17] MEDS: SODIUM CHLORIDE 0.9% 1,000 ML IV SCH (18:00)
[2021-01-17] MEDS ORDERED: ACETAMINOPHEN TAB 325 MG TAB PO PRN (18:15)
[2021-01-18 06:53] LABS: Basophils % (A) 0 %; Eosinophils % (A) 0 %; HCT 45.7 % (39.0-53.0); HGB 15.3 gm/dL (13.0-17.5); Lymphocytes # (A) 1.6 k/uL (1.0-4.8); Lymphocytes % (A) 9 %; MCH 31.8 pg (25.0-35.0); MCHC 33.5 g/dL (31.0-37.0); MCV 94.9 fL (80.0-100.0); Mean Platelet Volume 7.5; Monocytes # (A) 0.7 k/uL (0-1.0); Monocytes % (A) 4 %; Neutrophils # (A) 14.7 k/uL (1.3-7.7); Neutrophils % (A) 85 %; Platelet Count 202 k/uL (150-450); RBC 4.82 m/uL (4.30-5.90); RDW 12.7 % (11.5-15.5); WBC 17.3 k/uL (3.8-10.6)
[2021-01-18 07:05] LABS: African American GFR (CKD) >90 (>60 ml/min/1.73 sqM); Anion Gap 6 mmol/L; Blood Urea Nitrogen 18 mg/dL (9-20); Calcium 9.2 mg/dL (8.4-10.2); Carbon Dioxide 28 mmol/L (22-30); Chloride 105 mmol/L (98-107); Glucose 100 mg/dL (74-99); Magnesium 2.3 mg/dL (1.6-2.3); Non-African American GFR(CKD) >90 (>60 ml/min/1.73 sqM); Potassium 4.3 mmol/L (3.5-5.1); Sodium 139 mmol/L (137-145)
[2021-01-18] MEDS: IPRATROPIUM-ALBUTEROL 3 ML NEB INHALATION SCH (08:24)
[2021-01-18] MEDS: NICOTINE 14MG/24HR PATCH TRANSDERM SCH (08:53)
[2021-01-18] MEDS: PANTOPRAZOLE 40 MG TABLET PO SCH (08:54)
[2021-01-18] MEDS: ENOXAPARIN 40 MG/0.4 ML SYRINGE SQ SCH (08:54)
[2021-01-18] MEDS ORDERED: METOPROLOL TARTRATE 12.5 MG TAB PO SCH (09:00)
[2021-01-18 09:03] VITALS: RESP 16
[2021-01-18] MEDS: AMOXIC-POT CLAV 875-125MG 1 EACH TAB PO SCH (10:04)
[2021-01-18] MEDS: methylPREDNISolone 4 MG TAB TAPER PO SCH (10:07)
--- NOTE | 2021-01-18 10:24 | P.PN ---
Subjective Progress Note Date: 01/18/21 HISTORY OF PRESENT ILLNESS: This is a 40 year old male who is admitted to the hospital after being found unresponsive by his family. He received Narcan x 2. Patient examined this mor cristal at the bedside. He denies chest pain or pressure. Denies shortness of breath. States he has been up and going to the bathroom without any issues. Echocardiogram completed revealing ejection fraction 35-40%, moderate global hypokinesis of LV, mild to moderate mitral regurgitation, and mild tricuspid regurgitation. PHYSICAL EXAM: VITAL SIGNS: Reviewed. GENERAL: Well-developed in no acute distress. NECK: Supple. No JVD or thyromegaly LUNGS: Respirations even and unlabored. Lungs diminished to auscultation bilaterally. HEART: Regular rate and rhythm. S1 and S2 heard. EXTREMITIES: Normal range of motion. No clubbing or cyanosis. Peripheral pulses intact. No lower extremity edema ASSESSMENT: Unresponsiveness due to drug overdose, s/p Narcan x 2 New cardiomyopathy with abnormal troponins Cocaine use Marijuana use Acute hypoxic respiratory failure Possible aspiration pneumonia Acute renal failure, resolved PLAN: Patient with new cardiomyopathy with EF 35-40%. Suspect this is related to drug use. However, can not rule out underlying CAD. Patient has no angina at this time. He also has no signs or symptoms of heart failure. We will begin aspirin and lisinopril. No beta oni secondary to cocaine use. He may follow up outpatient with Dr. Ramachandran for further ischemic workup including possible stress test/cardiac cath. Nurse practitioner note has been reviewed by physician. Signing provider agrees with the documented findings, assessment, and plan of care. Objective - Vital Signs Vital signs: Vital Signs Temp 98.1 F 01/18/21 08:00 Pulse 84 01/18/21 08:40 Resp 16 01/18/21 08:00 BP 131/83 01/18/21 08:00 Pulse Ox 94 L 01/18/21 08:00 Intake & Output 01/17/21 01/18/21 01/18/21 18:59 06:59 18:59 Intake Total 600 236 Output Total 1400 Balance -800 236 Intake: IV 350 Sodium Chloride 0.9% 1, 350 000 ml @ 50 mls/hr IV . Q20H [facility] Rx#:[id number] Intake, IV Titration 50 Amount Sodium Chloride 0.9% 1, 50 000 ml @ 50 mls/hr IV . Q20H [facility] Rx#:[id number] Oral 200 236 Output: Urine 1400 Other: Voiding Method Toilet Toilet Urinal Urinal # Voids 1 1 # Bowel Movements 0 - Labs CBC & Chem 7: 01/18/21 06:04 01/18/21 06:04 Labs: Abnormal Lab Results - Last 24 Hours (Table) 01/18/21 01/18/21 Range/Units 06:04 06:04 WBC 17.3 H (3.8-10.6) k/uL Neutrophils # 14.7 H (1.3-7.7) k/uL Glucose 100 H (74-99) mg/dL Microbiology - Last 24 Hours (Table) 01/16/21 10:50 Blood Culture - Preliminary Blood No Growth after 24 hours 01/16/21 10:50 Blood Culture - Preliminary Blood No Growth after 24 hours
[2021-01-18] MEDS ORDERED: ASPIRIN 81 MG PO SCH (10:30)
--- NOTE | 2021-01-18 12:43 | P.DS ---
Providers Date of admission: 01/16/21 10:18 Attending physician: Amarjit Nelson Consults: 01/16/21 11:44 Consult Physician Routine Consulting Provider: Mehreen Ramachandran Consult Reason/Comments: Troponin elevation Do you want consulting provider notified?: Yes 01/16/21 11:46 Consult Physician Routine Consulting Provider: Brian Iyer Consult Reason/Comments: Drug overdose Do you want consulting provider notified?: Yes Primary care physician: Stated None Hospital Course: Final Diagnosis -Acute hypoxic respiratory failure secondary to opiate overdose with possible aspiration pneumonia. -New cardiomyopathy, ejection fraction 35-40% with moderate global hypokinesis of the LV -Significant muscle cramps: Secondary to dehydration from cocaine use -Acute renal failure secondary to intravascular depletion -Sinus tachycardia secondary to dehydration -Multiple drug use urine drug screen is positive for opiates cocaine and marijuana. -Mildly elevated troponin secondary to hypoxemia as well as probably cocaine use -Leukocytosis probably reactive and related to possible aspiration pneumonia Discharge disposition Patient is discharged home to follow-up with cardiology next week and will most likely need a stress test and cardiac Outpatient. Patient is discharged on aspirin and lisinopril. Patient educated extensively on cessation of drug use, smoking cessation. Repeat CBC in 2-3 days. Follow-up with the [facility]. Hospital course This is a 40-year-old male presented to the after being found unresponsive by his family. Family had given him 2 doses of Narcan and called EMS who brought patient to the . Patient was initially started on a Narcan drip and transferred to the medical ICU. Patient was obtunded however yesterday 01/17 he was alert oriented 3. He did admit to meeting up with some friends and using cocaine and also has a previous history of cocaine use. Drug toxicology was positive for opiates, cocaine and marijuana. Patient does admit to smoking daily as well as daily marijuana use and he socially drinks. There is no past medical history noted patient is not taking any medications at home. There was concern for aspiration pneumonia as patient was initially requiring oxygen support at 10L HF NC, he was able to be weaned onto room air with a saturation 97%. Chest x-ray on admission, suspect diffuse left lung edema and are less likely infiltrates. Chest x-ray follow-up showed patchy opacities of left lung field is improved compared to prior exam. Patient was evaluated by pulmonary services who recommended discharge on a steroid taper and oral Augmentin. White blood cell on admission was 18.2, improving to 17.3. We will repeat this in 2-3 days outpatient. Lactic acid on admission 3.3, improved to 1.9. Troponin level on admission of 0.280, 0.559 and a follow-up at 0.411. Cardiology consultation was placed. Echocardiogram showed an ejection fraction 35-40% with moderate global hypokinesis of the LV with mild tricuspid regurgitation and mild to moderate mitral regurgitation. Patient will not be discharged on a beta oni due to cocaine abuse. Patient was recommended to be discharged on lisinopril and aspirin 81 mg po daily and to follow up with cardiology in the office. Cardiology is recommending an outpatient stress test, cardiac catheterization. On 01/18/2021 Patient is cleared medically for discharge from a cardiology perspective and to follow-up in the office. Patient was counseled extensively on the importance of cessation of nicotine as well as cocaine and other drugs. He will need to follow-up closely with a primary care provider as well as cardiology. Patient denies any chest pain, chest pressure, palpitations. He denies any cough or shortness of breath. Lungs sounds show some coarse rhonchi in the lower bases however this is improving. He is now on room air with oxygen saturation of 94%, blood pressure is 131/83, temperature 98.1 and he is sinus rhythm with a heart rate of 84. Focal neurological exam is negative. Patient denies any headache, dizziness or lightheadedness. He is able to tolerate a diet and ambulating without difficulty. Patient is understanding of the plan of care for discharge and understands that he needs a lifestyle change. Please see medication reconciliation for list of current medications. Thank you for allowing us to participate in the care of this patient. Plan - Discharge Summary New Discharge Prescriptions: New Aspirin 81 mg PO DAILY #30 tab Amoxic-Pot Clav 875-125Mg [Augmentin 875-125] 1 each PO Q12HR 14 Days #28 tab methylPREDNISolone Dose Pack [Medrol Dose Pack] See Taper PO DAILY #10 tab Pantoprazole [Protonix] 40 mg PO AC-BRKFST #30 tab Nicotine 14Mg/24Hr Patch [Habitrol] 1 patch TRANSDERM DAILY patch Acetaminophen Tab [Tylenol] 650 mg PO Q4HR PRN tab PRN Reason: Fever And/ Or Pain lisinopriL [Zestril] 2.5 mg PO DAILY 1 Days #30 tab Discharge Medication List Acetaminophen Tab [Tylenol] 650 mg PO Q4HR PRN tab 01/18/21 [Rx] Amoxic-Pot Clav 875-125Mg [Augmentin 875-125] 1 each PO Q12HR 14 Days #28 tab 01/18/21 [Rx] Aspirin 81 mg PO DAILY #30 tab 01/18/21 [Rx] Nicotine 14Mg/24Hr Patch [Habitrol] 1 patch TRANSDERM DAILY patch 01/18/21 [Rx] Pantoprazole [Protonix] 40 mg PO AC-BRKFST #30 tab 01/18/21 [Rx] lisinopriL [Zestril] 2.5 mg PO DAILY 1 Days #30 tab 01/18/21 [Rx] methylPREDNISolone Dose Pack [Medrol Dose Pack] See Taper PO DAILY #10 tab 01/18/21 [Rx] Follow up Appointment(s)/Referral(s): Mehreen Ramachandran MD [STAFF PHYSICIAN] - 01/30/21 (office will call to with appointment time) None,Stated [Primary Care Provider] - 1-2 days [facility] [NON-STAFF] - 1 Week Ambulatory/Diagnostic Orders: Complete Blood Count w/diff [LAB.AMB] Time Frame: 2 Days, Location: None Selected Discharge Disposition: HOME SELF-CARE
--- NOTE | 2021-01-18 12:45 | P.PN ---
Subjective Progress Note Date: 01/18/21 Principal diagnosis: Altered mental status secondary to drug overdose This is a 40-year-old male patient was brought in by EMS earlier this morning after being found unresponsive by family members. There is concern regarding drug overdose including cocaine, heroin, marijuana. EMS did provide Narcan and the patient became more awake and alert briefly became more obtunded shortly thereafter. While awake the patient denied any drug use. CY scan of the brain revealed no acute intracranial process. He has very loose congested cough and possible aspiration. X-ray does reveal bilateral airspace disease worse on the left and some patchy density in the right lower lobe. No pneumothorax. White count 16.9. Hemoglobin 15.9. Sodium 134. Potassium 4.7. Creatinine 1.18. Glucose 161. Lactic acid 3.3. Troponin 0.28, 0.55. AST 146 ALT 37. Drug screen positive for opiates, cocaine, marijuana. Coronavirus by PCR not detected. Arterial blood gases on room air revealed a PaO2 of 41, pCO2 40, pH 7.42. He is seen in the emergency room. He is arousable. Pulling at his IVs and oxygen. He is currently on 10 L high flow nasal cannula to maintain O2 saturations in the 90s. He remains tachypneic. Tachycardic. Blood pressure stable. He's been given ceftriaxone. Currently on a Narcan drip at 0.6 mg per hour. 0.9 normal saline at 75 ML's per hour. The patient is seen today 01/17/2021 in follow-up in the intensive care unit. He is much more awake and alert today. Oriented 3. Maintaining O2 saturation is in the 90s on 5 L high flow nasal cannula. His been afebrile. Hemodynamically stable. His x-ray shows improving patchy opacity within the left lung. Blood cultures revealed no growth. White count 18.2. Hemoglobin 14.7. Sodium 136. Potassium 4.0. Creatinine 0.87. Troponin 0.411. Echocardiogram is pending. X-ray of the right hip secondary to complaints of pain revealed no acute fractures. He is continued on DuoNeb inhalations, Zosyn. NicoDerm patch in place. Lovenox for DVT prophylaxis. On 01/18/2021 patient seen in follow-up in medical surgical floor, he is calm and comfortable, he sitting up in bed, awake and alert, oriented 3, breathing comfortably, lung sounds reveal a few bibasilar crackles, patient has an occasional cough, at times she is bringing up some phlegm, he states is slightly pink tinged, but no hemoptysis, no complaints of chest pain, he remains on Augmentin for antibiotic coverage, remains on nebulized bronchodilators, he is on nicotine patch. He is on GI and DVT prophylaxis. Today's labs have been re viewed, his blood blood cell count is 17.3, slightly improved from yesterday, hemoglobin is 15.3, electrolytes and renal profile are within normal limits, has had no acute events overnight. Echocardiogram has been reviewed going globin hypokinesis of left ventricle and EF of 35-40%, mild to moderate mitral regurgitation, no evidence of pulmonary hypertension, there is mild tricuspid regurgitation, right-sided pressures 30.5 mmHg. Objective - Vital Signs Vital signs: Vital Signs Temp 98.1 F 01/18/21 08:00 Pulse 84 01/18/21 08:40 Resp 16 01/18/21 08:00 BP 131/83 01/18/21 08:00 Pulse Ox 94 L 01/18/21 08:00 Intake & Output 01/17/21 01/18/21 01/18/21 18:59 06:59 18:59 Intake Total 600 236 Output Total 1400 Balance -800 236 Intake: IV 350 Sodium Chloride 0.9% 1, 350 000 ml @ 50 mls/hr IV . Q20H JERRY Rx#:[id number] Intake, IV Titration 50 Amount Sodium Chloride 0.9% 1, 50 000 ml @ 50 mls/hr IV . Q20H JERRY Rx#:[id number] Oral 200 236 Output: Urine 1400 Other: Voiding Method Toilet Toilet Toilet Urinal Urinal Urinal # Voids 1 1 1 # Bowel Movements 0 0 - Exam GENERAL EXAM: Alert, very pleasant, 40-year-old white male, up in bed, breathing comfortably, on room air pulse ox of 94% comfortable in no apparent distress. HEAD: Normocephalic/atraumatic. EYES: Normal reaction of pupils, equal size. Conjunctiva pink, sclera white. NOSE: Clear with pink turbinates. THROAT: No erythema or exudates. NECK: No masses, no JVD, no thyroid enlargement, no adenopathy. CHEST: No chest wall deformity. Symmetrical expansion. LUNGS: Equal air entry with mild bibasilar rales, no wheezes, no rhonchi CVS: Regular rate and rhythm, normal S1 and S2, no gallops, no murmurs, no rubs ABDOMEN: Soft, nontender. No hepatosplenomegaly, normal bowel sounds, no g uarding or rigidity. EXTREMITIES: No clubbing, no edema, no cyanosis, 2+ pulses and upper and lower extremities. MUSCULOSKELETAL: Muscle strength and tone normal. SPINE: No scoliosis or deformity SKIN: No rashes CENTRAL NERVOUS SYSTEM: Alert and oriented -3. No focal deficits, tone is normal in all 4 extremities. PSYCHIATRIC: Alert and oriented -3. Appropriate affect. Intact judgment and insight. - Labs CBC & Chem 7: 01/18/21 06:04 01/18/21 06:04 Labs: Abnormal Lab Results - Last 24 Hours (Table) 01/18/21 01/18/21 Range/Units 06:04 06:04 WBC 17.3 H (3.8-10.6) k/uL Neutrophils # 14.7 H (1.3-7.7) k/uL Glucose 100 H (74-99) mg/dL Microbiology - Last 24 Hours (Table) 01/16/21 10:50 Blood Culture - Preliminary Blood No Growth after 24 hours 01/16/21 10:50 Blood Culture - Preliminary Blood No Growth after 24 hours Assessment and Plan Plan: Assessment: #1. Altered mental status related to drug overdose and the drug screen was positive for cocaine, marijuana and possible heroin, recovered. Patient received Narcan 2 with improvement of his level of consciousness #2. Acute hypoxic respiratory failure secondary to suspected aspiration and mild fluid volume overload, improved. Patient is currently on room air #3. Leukocytosis possibly related to aspiration, improving, patient is covered with Augmentin #4. Positive troponins, please refer to the cardiology consultation #5. New cardiomyopathy, with EF of 35-40%, being followed by cardiology #6. Acute kidney injury, improving #7. Nicotine dependence Plan: Continue oral antibiotics Continue bronchodilators Echocardiogram has been noted, patient is being followed by cardiology Vital signs are stable, no cognitive chest pain, patient is off the oxygen No altered mentation, Increase activity as tolerated Possible discharge home if patient has been cleared from cardiology standpoint and medicine May finish outpatient course of antibiotics We will need to follow up with Dr. Blackman in the office in 7-10 days I performed a history & physical examination of the patient and discussed their management with my nurse practitioner, Milvia Lee. I reviewed the nurse practitioner's note and agree with the documented findings and plan of care. Lung sounds are positive for mild crackles throughout the lung tautm. The find ings and the impression was discussed with the patient. I attest to the documentation by the nurse practitioner. Time with Patient: Less than 30
[2021-01-18 14:59] VITALS: BP 136/58; PULSE 94; TEMP 97.9
== END 2021-01-18 15:06 | disposition home or self-care (01) | DRG 917 ==
LOC: EC 07:07 → 1SOBS 10:18 → 3SCARD 11:06 → 2SICU 12:31 → 4SSUR 01-17 22:16
PROVIDERS: ADMIT Internal Medicine; ATTEND Internal Medicine
PROC: 5A0935A Assistance with Respiratory Ventilation, Less than 24 Consecutive Hours, High Flow/Velocity Cannula (ICD-10-PCS; principal; 2021-01-16)
DX: T40.1X1A Poisoning by heroin, accidental (unintentional), initial encounter (principal); J96.01 Acute respiratory failure with hypoxia; J69.0 Pneumonitis due to inhalation of food and vomit; N17.9 Acute kidney failure, unspecified; I42.9 Cardiomyopathy, unspecified; T40.5X1A Poisoning by cocaine, accidental (unintentional), initial encounter; F14.10 Cocaine abuse, uncomplicated; Z20.822 Contact with and (suspected) exposure to COVID-19; E86.0 Dehydration; E86.9 Volume depletion, unspecified; D72.829 Elevated white blood cell count, unspecified; R41.82 Altered mental status, unspecified; I08.1 Rheumatic disorders of both mitral and tricuspid valves; R77.8 Other specified abnormalities of plasma proteins; F17.210 Nicotine dependence, cigarettes, uncomplicated; Z71.6 Tobacco abuse counseling; Z71.51 Drug abuse counseling and surveillance of drug abuser
CPT/HCPCS: 36415; 36600; 70450; 71045; 71046; 73502; 80048; 80053; 80143; 80306; 82805; 83605; 83735; 83880; 84484; 85025; 87040; 87635; 93005; 93306; 94640; 96374; 99291